=== PATIENT | female | born 1935 ===

== ENCOUNTER 2017-10-06 14:27 | Emergency (ER) | payer OTHER, MEDICARE ==
[2017-10-06 14:28] VITALS: BMI 24.0
[2017-10-06 14:46] VITALS: RESP 18
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
--- NOTE | 2017-10-06 16:47 | RAD ---
PROCEDURE: Radiographs of the Lumbar Spine. HISTORY: low back pain COMPARISON: No prior. FINDINGS: BONES: Normal alignment. No listhesis. No fracture. DISC SPACES: Unremarkable. OTHER FINDINGS: None. IMPRESSION: Unremarkable radiographs of the lumbar spine.
[2017-10-06 17:16] VITALS: BP 182/74; PULSE 53; TEMP 97.8; O2SAT 100
== END 2017-10-06 17:16 | disposition home or self-care (01) ==
LOC: C.ER 14:27
DX: S16.1XXA Strain of muscle, fascia and tendon at neck level, initial encounter (principal); S33.5XXA Sprain of ligaments of lumbar spine, initial encounter; V89.2XXA Person injured in unspecified motor-vehicle accident, traffic, initial encounter

== ENCOUNTER 2018-09-10 15:09 | Emergency (ER) | payer MEDICARE, OTHER ==
[2018-09-10 15:09] VITALS: BMI 24.0
[2018-09-10 17:05] VITALS: RESP 20
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
[2018-09-10 18:39] LABS: BASO # 0.1 K/uL (0.0-0.2); BASO % 0.9 % (0.0-2.0); EOS # 0.7 K/uL (0.0-0.7); EOS % 7.1 % (0.0-4.0); LYMPH # 2.8 K/uL (1.0-4.3); LYMPH % 29.5 % (20.0-40.0); MEAN CELL VOLUME 87.3 fL (81.0-99.0); MEAN CORPUSCULAR HEMOGLOBIN 29.2 pg (27.0-31.0); MEAN CORPUSCULAR HGB CONC 33.5 g/dL (33.0-37.0); MEAN PLATELET VOLUME 8.8 fL (7.2-11.7); MONO # 0.9 K/uL (0.0-0.8); MONO % 9.5 % (0.0-10.0); NEUT # 5.1 K/uL (1.8-7.0); NRBC % 0.1 % (0.0-2.0); RBC 4.1 Mil/uL (3.80-5.20); RED CELL DISTRIBUTION WIDTH 15.4 % (11.5-14.5); WHITE BLOOD COUNT 9.6 K/uL (4.8-10.8)
[2018-09-10] MEDS ORDERED: Tmp-Smz 800 mg-160 mg DS Tab PO STA (18:55)
[2018-09-10] MEDS ORDERED: Bacitracin 500 Units/gm Oint Foilpak UD TOP ONE (18:56)
[2018-09-10 19:08] LABS: ALB/GLOB RATIO 1.4 (1.0-2.1); ALBUMIN 4.6 g/dL (3.5-5.0); ALT/SGPT 33 U/L (9-52); AST/SGOT 28 U/L (14-36); BLOOD UREA NITROGEN 24 mg/dL (7-17); GFR NON-AFRICAN AMERICAN 53
[2018-09-10] MEDS ORDERED: Tmp-Smz 800 mg-160 mg DS Tab ONE (19:12)
[2018-09-10] MEDS ORDERED: Bacitracin 500 Units/gm Oint Foilpak UD ONE (19:12)
[2018-09-10 19:23] VITALS: BP 169/64; PULSE 67; TEMP 97.5; O2SAT 97
[2018-09-10 19:33] LABS: PROTHROMBIN TIME 10.6 SECONDS (9.7-12.2)
--- NOTE | 2018-09-11 09:16 | RAD ---
Date of service: 09/10/2018 PROCEDURE: Left Knee Radiographs. HISTORY: Pain. COMPARISON: None. FINDINGS: BONES: No fracture. JOINTS: Probable minimal medial femoral tibial joint space narrowing. Patellofemoral joint space narrowing-osteoarthritis. JOINT EFFUSION: None. OTHER FINDINGS: Quadriceps insertional enthesophyte Posterior Atherosclerotic vascular calcifications present. IMPRESSION: No fracture or dislocation. No lytic lesions. Other findings as above.
== END 2018-09-10 19:21 | disposition home or self-care (01) ==
LOC: C.ER 15:09
DX: S02.2XXA Fracture of nasal bones, initial encounter for closed fracture (principal); S83.92XA Sprain of unspecified site of left knee, initial encounter; S80.212A Abrasion, left knee, initial encounter; W01.0XXA Fall on same level from slipping, tripping and stumbling without subsequent striking against object, initial encounter; Y92.480 Sidewalk as the place of occurrence of the external cause